=== PATIENT | male | born 1960 | race Caucasian/White ===

== ENCOUNTER 2016-10-16 09:59 | Inpatient (IN) | payer BC ==
[~2016-10-16] VITALS: Ht 195.6 cm; Wt 142.5 kg
[2016-10-16 10:36] LABS: HEMATOCRIT 50.9 % (38.0-50.0); MCH 29.3 PG (29.0-34.0); MCHC 33.2 G/DL (30.0-36.0); MCV 88.2 FL (86-99); PLATELET COUNT 267 K/uL (156-360); RBC DIS.WIDTH-CV 13.9 % (11.8-14.6); RBC DIS.WIDTH-SD 44.9 % (39-53); RED BLOOD COUNT 5.77 M/uL (4.00-5.50); WHITE BLOOD COUNT 7.9 K/uL (4.1-10.2)
[2016-10-16 10:45] LABS: CHLORIDE 105 mEq/L (99-109); POTASSIUM 4.2 mEq/L (3.7-5.4); SODIUM 136 mEq/L (136-147)
[2016-10-16 10:47] LABS: GLUCOSE 182 mg/dL (70-99)
[2016-10-16 10:49] LABS: ANION GAP 10 MEQ/L (2-14)
[2016-10-16 10:51] LABS: GFR ESTIMATE (CALCULATED) 51 mL/min/
[2016-10-16 10:52] LABS: UREA NITROGEN (BUN) 17 mg/dL (9-23)
[2016-10-16 11:00] LABS: TROP-I INTERPRETATION POSITIVE; TROPONIN-I 1.56 ng/mL (0.0-0.30)
[2016-10-16 11:35] LABS: INTER. NORMALIZED RATIO 1.1; PROTHROMBIN TIME 10.7 (9.2-11.2); PTT 30.6 (25-32)
[2016-10-16] MEDS ORDERED: PRILOSEC20 MG PO (12:07)
[2016-10-16] MEDS ORDERED: ECOTRIN325 MG PO (12:08)
[2016-10-16 12:57] LABS: HDL CHOLESTEROL 32 MG/DL (Desirable>=40); LDL CHOLESTEROL 130 mg/dL (Desirable<100); NON-HDL CHOLESTEROL 163 mg/dL (Desirable<160); TOTAL CHOLESTEROL 195 mg/dL (Desirable<200); TRIGLYCERIDES 166 MG/DL (Normal: <150)
[2016-10-16 16:33] VITALS: BP 114/76
[2016-10-16 19:05] LABS: TROP-I INTERPRETATION POSITIVE; TROPONIN-I 1.29 ng/mL (0.0-0.30)
[2016-10-16 19:11] LABS: Estimated Average Glucose 160 mg/dL (70-123); HEMOGLOBIN A1c (GLYCOHEMOGLOB) 7.2 % HGB (Below 5.7)
[2016-10-16 19:19] VITALS: BP 103/60
[2016-10-16 23:40] VITALS: BP 109/62
[2016-10-17 01:27] LABS: TROP-I INTERPRETATION POSITIVE; TROPONIN-I 1.11 ng/mL (0.0-0.30)
[2016-10-17 03:45] VITALS: BP 125/72
[2016-10-17 07:07] LABS: HEMATOCRIT 47.9 % (38.0-50.0); MCH 29.1 PG (29.0-34.0); MCHC 32.8 G/DL (30.0-36.0); MCV 88.9 FL (86-99); MEAN PLAT.VOLUME 9.8 uM^3 (9.0-12.4); PLATELET COUNT 221 K/uL (156-360); RBC DIS.WIDTH-CV 13.8 % (11.8-14.6); RED BLOOD COUNT 5.39 M/uL (4.00-5.50); WHITE BLOOD COUNT 7.7 K/uL (4.1-10.2)
[2016-10-17 07:21] VITALS: BP 128/76
[2016-10-17 07:28] LABS: ALKALINE PHOSPHATASE 53 IU/L (3-129); ANION GAP 7 MEQ/L (2-14); CHLORIDE 105 MEQ/L (99-109); GFR ESTIMATE (CALCULATED) > 59 mL/min/; GLUCOSE 121 mg/dL (70-99); POTASSIUM 4.9 MEQ/L (3.7-5.4); SAMPLE HEMOLYSIS CHECK 0; SAMPLE ICTERIC CHECK 0; SAMPLE LIPEMIA CHECK 0; SODIUM 136 MEQ/L (136-147); TOTAL BILIRUBIN 1.1 MG/DL (0.0-1.0); UREA NITROGEN (BUN) 14 mg/dL (9-23)
[2016-10-17 11:05] VITALS: BP 143/82
[2016-10-17 15:46] VITALS: BP 139/75
[2016-10-17 19:15] VITALS: BP 118/70
[2016-10-17 23:56] VITALS: BP 112/54
[2016-10-18 04:24] VITALS: BP 108/55
[2016-10-18 06:21] LABS: EOSINOPHIL (%) 2.4 % (0-5); EOSINOPHIL COUNT 0.2 K/uL (0-0.3); HEMATOCRIT 45.1 % (38.0-50.0); IMMATURE GRANULOCYTE (%) 0.4 % (0.0-0.7); INSTRUMENT ABS NEUTROPHIL CT 4.3 K/uL; LYMPHOCYTE COUNT 1.9 K/uL (1.0-2.8); MCH 29.2 PG (29.0-34.0); MCHC 33.3 G/DL (30.0-36.0); MCV 87.9 FL (86-99); MEAN PLAT.VOLUME 10.3 uM^3 (9.0-12.4); MONOCYTE (%) 8.5 % (3-12); MONOCYTE COUNT 0.6 K/uL (0-0.8); NEUTROPHIL (%) 61.8 % (45-76); NEUTROPHIL COUNT 4.3 K/uL (1.8-6.4); PLATELET COUNT 220 K/uL (156-360); RBC DIS.WIDTH-CV 13.4 % (11.8-14.6); RBC DIS.WIDTH-SD 43.9 % (39-53); RED BLOOD COUNT 5.13 M/uL (4.00-5.50)
[2016-10-18 06:44] LABS: ANION GAP 7 MEQ/L (2-14); CHLORIDE 105 MEQ/L (99-109); GFR ESTIMATE (CALCULATED) > 59 mL/min/; GLUCOSE 126 mg/dL (70-99); SAMPLE HEMOLYSIS CHECK 0; SAMPLE ICTERIC CHECK 0; SAMPLE LIPEMIA CHECK 0; SODIUM 135 MEQ/L (136-147); UREA NITROGEN (BUN) 13 mg/dL (9-23)
[2016-10-18 07:00] VITALS: BP 110/75
[2016-10-18 11:59] VITALS: BP 141/76
[2016-10-18] MEDS ORDERED: NITROSTAT0.4 MG SL (13:37)
[2016-10-18] MEDS ORDERED: LOPRESSOR25 MG PO (13:37)
[2016-10-18] MEDS ORDERED: ASPIR-LOW81 MG PO (13:37)
[2016-10-18] MEDS ORDERED: ATORVASTATIN CA40 MG PO (13:37)
[2016-10-18] MEDS ORDERED: LISINOPRIL5 MG PO (13:38)
[2016-10-18] MEDS ORDERED: LO-DOSE ASPIRIN81 M2 PO (13:40)
[2016-10-18] MEDS ORDERED: ELIQUIS5 MG PO ×2 (13:49→15:16)
== END 2016-10-18 16:00 | disposition home or self-care (01) | DRG 281 ==
LOC: EME 09:59 → 4EAST 11:51 → EDOF 11:51 → 4EAST 16:22
PROVIDERS: Emergency Medicine; Internal Medicine; Student in an Organized Health Care Education/Training Program
DX: I21.4 Non-ST elevation (NSTEMI) myocardial infarction (principal); N17.9 Acute kidney failure, unspecified; I82.413 Acute embolism and thrombosis of femoral vein, bilateral; I82.423 Acute embolism and thrombosis of iliac vein, bilateral; I82.433 Acute embolism and thrombosis of popliteal vein, bilateral; I82.442 Acute embolism and thrombosis of left tibial vein; I82.513 Chronic embolism and thrombosis of femoral vein, bilateral; I82.523 Chronic embolism and thrombosis of iliac vein, bilateral; I82.533 Chronic embolism and thrombosis of popliteal vein, bilateral; I82.542 Chronic embolism and thrombosis of left tibial vein; I10 Essential (primary) hypertension; I87.2 Venous insufficiency (chronic) (peripheral); K21.9 Gastro-esophageal reflux disease without esophagitis; F17.290 Nicotine dependence, other tobacco product, uncomplicated; E78.5 Hyperlipidemia, unspecified; I25.10 Atherosclerotic heart disease of native coronary artery without angina pectoris; Z86.711 Personal history of pulmonary embolism; Z95.828 Presence of other vascular implants and grafts; Z79.82 Long term (current) use of aspirin; Z91.14 Patient's other noncompliance with medication regimen
CPT/HCPCS: 71020; 78582; 80048; 80053; 80061; 83036; 83880; 84484; 85025; 85027; 85610; 85730; 93005; 93306; 93970; 99281; 99285; A9540; A9567; C1769; C1887; J1644; J2250; J3010; J7030; J7040